=== PATIENT | female | born 1965 ===

== ENCOUNTER → 2018-08-22 19:59 | Outpatient (REF) | payer BC, SELFPAY ==
[2018-08-22 20:34] LABS: Cholesterol 245 mg/dL (140-199); HDL Cholesterol 64 mg/dL (40-60); LDL Cholesterol Calculated 169 mg/dL (<100); Triglycerides 61 mg/dL (35-150)
[2018-08-22 20:45] LABS: Hemoglobin A1C% w Est Avg Glu 5.4 % (4.0-6.0)
[2018-08-22 21:04] LABS: Thyroid Stimulating Hormone 1.13 uIU/mL (0.47-4.68)
== END ==
LOC: LAB 19:59
PROVIDERS: Visit Provider Family Medicine
DX: E03.9 Hypothyroidism, unspecified (principal); Z13.6 Encounter for screening for cardiovascular disorders; Z13.1 Encounter for screening for diabetes mellitus; Z13.228 Encounter for screening for other metabolic disorders
CPT/HCPCS: 36415; 80061; 83001; 83036; 84443